=== PATIENT | female | born 1965 | race Caucasian/White ===

== ENCOUNTER → 2016-07-14 | Outpatient (CLI) | payer OTHER | LOC: RAD 10:50 | PROVIDERS: ATTEND Family Medicine | DX: Z12.31 Encounter for screening mammogram for malignant neoplasm of breast (principal) ==

== ENCOUNTER 2016-07-16 12:07 | Day surgery (SDC) | payer OTHER ==
[~2016-07-16] VITALS: Ht 157.5 cm; Wt 83.6 kg
--- NOTE | 2016-07-16 07:39 | NUR ---
PATIENT CALLS TO REPORT FEELING LIKE SHE HAS A SINUS INFECTION WHEN WAKING UP TODAY. PATIENT REPORTS BEING "PLUGGED UP" AND SNEEZING. PATIENT STATES DRAINAGE IS CLEAR WHEN BLOWING NOSE, SHE FEELS AFEBRILE, ABSENT OF SWEATS, AND SHE DOES NOT HAVE A COUGH. SYMPTOMS REPORTED TO [facility] WHO WOULD LIKE PATIENT TO REPORT PLANNED, AND WE WILL EVALUATE FROM THERE. PATIENT INFORMED THAT CASE STILL MAY BE CANCELLED IF SYMPTOMS WORSEN OR ANESTHESIA DOES NOT FEEL THAT IT IS SAFE. PATIENT STATES SHE UNDERSTANDS AND PLANS TO REPORT AT 1245 TODAY.
[~2016-07-16 12:07] MED LIST: LACTATED RINGERS 1,000 ML IV SCH; SODIUM CHLORIDE FLUSH 3 ML SYR IV PRN
[2016-07-16 12:40] VITALS: BP 175/99
[2016-07-16] MEDS ORDERED: MIDAZOLAM 2 MG/2 ML (VERSED) VIAL ONE (14:00)
[2016-07-16] MEDS ORDERED: PROPOFOL 20 ML IV ONE (14:00)
[2016-07-16] MEDS ORDERED: ALFENTANIL 500 MCG/ML (ALFENTA) 5 ML AMP IV ONE (14:00)
[2016-07-16] MEDS ORDERED: LIDOCAINE 4% TOPICAL 4.5 ML SYR ONE (14:10)
[2016-07-16] MEDS ORDERED: SIMETHICONE 40 MG/0.6 ML (MYLICON DROPS) ORAL SYRINGE ONE (14:10)
[2016-07-16 15:13] VITALS: BP 151/86
== END 2016-07-16 15:21 | disposition home or self-care (01) ==
LOC: ASC 12:07
PROVIDERS: ATTEND Surgery
DX: R10.13 Epigastric pain (principal); D13.1 Benign neoplasm of stomach; K31.9 Disease of stomach and duodenum, unspecified; I10 Essential (primary) hypertension; E11.9 Type 2 diabetes mellitus without complications; F17.200 Nicotine dependence, unspecified, uncomplicated
CPT/HCPCS: 36415; 43239; 43251; 84132; 87077; J2250; J7120

== ENCOUNTER → 2016-08-28 | Outpatient (CLI) | payer OTHER | LOC: RAD 09:17 | PROVIDERS: ATTEND Surgery | DX: R10.9 Unspecified abdominal pain (principal) | CPT/HCPCS: 74249 ==

== ENCOUNTER → 2016-10-27 | Outpatient (REF) | payer OTHER ==
[~2016-10-27] MED LIST changes: +ACHYD1T PO; +ASPI-586 PO; +ATOR40TA59 PO; +CHOL500049 PO; +CYCL10TA45 PO; +HCTZ12.5T PO; -LACTATED RINGERS 1,000 ML IV SCH; +NF-LISIN40 PO; +OXYC5TAB71 PO; +SMTR50T PO; -SODIUM CHLORIDE FLUSH 3 ML SYR IV PRN
[2016-10-27 12:23] LABS: ALKALINE PHOSPHATASE 141 U/L (38-126); ANION GAP 15.4 MEQ/L (3-15); BUN/CREATININE RATIO 13 (10-20); CALCULATED IONIZED CALCIUM 4.1 mg/dL (3.8-4.6); TOTAL PROTEIN 7.2 g/dL (6.4-8.5)
== END ==
LOC: LAB 11:12
PROVIDERS: ATTEND Family Medicine
DX: E11.9 Type 2 diabetes mellitus without complications (principal); I10 Essential (primary) hypertension; E78.4 Other hyperlipidemia; R74.8 Abnormal levels of other serum enzymes
CPT/HCPCS: 80053; 80061; 82306; 82977; 83036